=== PATIENT | female | born 1945 | race Caucasian/White ===

== ENCOUNTER 2018-03-29 09:55 | Outpatient (CLI) | payer MEDICARE, OTHER, MEDICAID, SELFPAY ==
--- NOTE | 2018-03-29 09:47 | DI.RAD_ITS ---
SYMPTOM/DIAGNOSIS: INJURY, PAIN LEFT KNEE: Three views were obtained. There is narrowing of the medial tibiofemoral cartilaginous joint space. Mild hypertrophic spurring of the bones of the knee noted, most prominent at the medial tibiofemoral joint. No other significant abnormality is seen. 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
== END 2018-03-29 10:15 ==
PROVIDERS: Visit Provider Student in an Organized Health Care Education/Training Program
DX: M25.562 Pain in left knee (principal); M17.12 Unilateral primary osteoarthritis, left knee; J44.9 Chronic obstructive pulmonary disease, unspecified; M76.32 Iliotibial band syndrome, left leg
CPT/HCPCS: 20610; 73562; 99203; J1040

== ENCOUNTER 2018-06-23 00:40 | Outpatient (CLI) | payer MEDICARE, OTHER, SELFPAY ==
[2018-06-23] MEDS: Gadoterate meglumine 20 ML VIAL 10 ML IVP (14:16)
--- NOTE | 2018-06-23 15:06 | DI.MRI_ITS ---
SYMPTOMS/DIAGNOSIS: LOW BACK PAIN, M54.5, BILATERAL LEG PAIN, H/O LUMBAR DISCECTOMY IN 2014 MRI OF THE LUMBAR SPINE: Pre and post contrast examination was performed. There are no priors for comparison. There is artifact from the patient's prior surgery. The patient has what appear to be intervertebral disc spacers at L3-4 and L4-L5 and posterior spinal rods with pedicle screws from L3 through L5. There may be mild grade 1 spondylolisthesis of L5 on S1. The conus medullaris has a normal appearance and location. There is a hemangioma or fatty rest in the L1 vertebral body. Marrow signal otherwise appears within normal limits apart from the degenerative endplate signal changes. There is patient motion artifact present. At L5-S1, there is degenerative disc disease and a diffuse disc bulge. There does not appear to be significant central spinal canal stenosis. The neural foraminal evaluation is limited due to the orthopedic hardware. At L4-L5, there does not appear to be significant central spinal canal stenosis. No significant right foraminal stenosis is seen. The left neural foramen is obscured by the orthopedic hardware. At L3-L4, there does not appear to be significant central spinal canal stenosis nor right foraminal stenosis. The left neural foramen appears obscured by the orthopedic hardware. At L2-L3, there is disc desiccation. No significant central spinal canal or neural foraminal stenosis is appreciated. L1-L2 shows no focal disc herniation, central spinal canal or neural foraminal stenosis. Following contrast administration, no significant abnormal enhancement is seen. IMPRESSION: 1. Limited examination due to patient motion artifact and orthopedic hardware. 2. Multilevel degenerative changes in the lumbar spine, but no definite significant central spinal canal or neural foraminal stenosis is seen within the limitations of the examination.
== END 2018-06-23 01:00 ==
PROVIDERS: PCP Registered Nurse; Visit Provider Registered Nurse
DX: M54.5 Low back pain (principal); M79.604 Pain in right leg; M79.605 Pain in left leg; M51.37 Other intervertebral disc degeneration, lumbosacral region; Z98.890 Other specified postprocedural states
CPT/HCPCS: 72158

== ENCOUNTER 2018-07-10 01:48 | Outpatient (CLI) | payer MEDICARE, OTHER, SELFPAY ==
--- NOTE | 2018-07-10 14:08 | DI.CT_ITS ---
SYMPTOM/DIAGNOSIS: LUMBAGO, S/P LUMBAR FUSION, Z98.1, M54.9, V45.[address]: There has been posterior fusion with metallic rods in disc spacers in place from L 3 through L 5. This creates significant artifact. The hardware appears intact. No fractures are seen. There is mild disc bulging at L 2-3 and L 5-S 1. IMPRESSION: Posterior fusion hardware from L 3 through L 5. Degenerative disc changes and facet degenerative changes at L 2-3 and L 5-S 1.
--- NOTE | 2018-07-10 14:30 | DI.RAD_ITS ---
SYMPTOM/DIAGNOSIS: LUMBAGO, M54.9, V45.4,Z98.1 LUMBAR SPINE: Lateral views in neutral, flexion and extension were performed. Comparison is made with MRI of the lumbar spine dated 06/23/18. The patient is status post posterior fusion from L 3 through L 5 with hardware in space. Disc spacers are seen at the L 3-4 and L 4-5 discs. There is no subluxation with flexion or extension. There is mild narrowing of the L 5-S 1 disc space. Anteriorly projecting osteophytes are noted in the lower thoracic spine. The aorta is calcified and normal in diameter. IMPRESSION: Stable posterior fusion from L 3 through L 5.
== END 2018-07-10 02:08 ==
PROVIDERS: PCP Registered Nurse; Visit Provider Neurological Surgery
DX: M47.817 Spondylosis without myelopathy or radiculopathy, lumbosacral region (principal); M51.37 Other intervertebral disc degeneration, lumbosacral region; M54.5 Low back pain; Z98.1 Arthrodesis status
CPT/HCPCS: 72110; 72131

== ENCOUNTER 2018-07-24 01:00 | Outpatient (CLI) | payer MEDICARE, OTHER, SELFPAY ==
--- NOTE | 2018-07-24 10:55 | DI.RAD_ITS ---
SYMPTOM/DIAGNOSIS: REPEAT VIEWS FOR MAXIMAL FLEXION/EXTENSION LUMBAR SPINE: AP and standing lateral and flexion and extension views were obtained. There are five lumbar type vertebral bodies. Posterior spinal rods and pedicle screws at L 3, L 4 and L 5. Intervertebral disc spacers are seen at L 3 -4 and L 4-5. There is normal alignment of the lumbar spine. No acute fractures or subluxations are seen. No significant subluxations are seen with flexion or extension. The bones do appear to be mildly osteopenic.
== END 2018-07-24 01:20 ==
PROVIDERS: PCP Registered Nurse; Visit Provider Physician Assistant Surgical
DX: M47.817 Spondylosis without myelopathy or radiculopathy, lumbosacral region (principal); M85.88 Other specified disorders of bone density and structure, other site; Z98.1 Arthrodesis status
CPT/HCPCS: 72100

== ENCOUNTER → 2019-09-11 12:30 | Outpatient (BNVA) | payer MEDICARE, OTHER, SELFPAY | PROVIDERS: PCP Registered Nurse; Referring Provider Physician Assistant Medical; Visit Provider Psychiatry & Neurology Neurology | DX: R26.0 Ataxic gait (principal); G95.9 Disease of spinal cord, unspecified; G25.0 Essential tremor; J44.9 Chronic obstructive pulmonary disease, unspecified; I10 Essential (primary) hypertension | CPT/HCPCS: 99204; 99215 ==

== ENCOUNTER → 2019-10-08 09:14 | Outpatient (BNVA) | payer MEDICARE, OTHER, SELFPAY | PROVIDERS: PCP Physician Assistant Medical; Referring Provider Registered Nurse; Visit Provider Psychiatry & Neurology Neurology | DX: R26.0 Ataxic gait (principal); G95.9 Disease of spinal cord, unspecified; G25.0 Essential tremor; J44.9 Chronic obstructive pulmonary disease, unspecified; I10 Essential (primary) hypertension | CPT/HCPCS: 99213 ==

== ENCOUNTER → 2019-12-18 14:52 | Outpatient (BNVA) | payer MEDICARE, OTHER, SELFPAY | PROVIDERS: PCP Physician Assistant Medical; Referring Provider Physician Assistant Medical; Visit Provider Psychiatry & Neurology Neurology | DX: R26.0 Ataxic gait (principal); G95.9 Disease of spinal cord, unspecified; G25.0 Essential tremor; I10 Essential (primary) hypertension; J44.9 Chronic obstructive pulmonary disease, unspecified | CPT/HCPCS: 99214 ==

== ENCOUNTER → 2024-09-26 12:56 | Outpatient (BNVA) | payer MEDICARE, SELFPAY | PROVIDERS: PCP Physician Assistant Medical; Referring Provider Physician Assistant Medical; Visit Provider Physician Assistant Surgical | DX: J45.909 Unspecified asthma, uncomplicated (principal); R06.00 Dyspnea, unspecified; R05.9 Cough, unspecified; T78.40XA Allergy, unspecified, initial encounter | CPT/HCPCS: 99215; 36415 ==

== ENCOUNTER 2024-09-26 15:18 | Outpatient (REF) | payer MEDICARE, SELFPAY ==
[2024-09-26 22:26] LABS: IgE 37 IU/mL (<158)
[2024-10-02 16:54] LABS: Alter tenuis/alternata IgG 39.3 mcg/mL (<12.0); Aspergillus fumigatus IgG 23.7 mcg/mL (<46.0); Aureobasidium pullulans IgG 24.8 mcg/mL (<18.0); Laceyella sacchari IgG 9.7 mcg/mL (<25.0); Micropolyspora faeni IgG 11.4 mcg/mL (<5.0); Penicillium Chrysogenum IgG 16.6 mcg/mL (<22.0); Phoma betae IgG 35.3 mcg/mL (<8.0)
== END 2024-09-26 15:19 | disposition home or self-care (01) ==
LOC: LBN 15:18
PROVIDERS: PCP Physician Assistant Medical; Visit Provider Physician Assistant Surgical
DX: J45.909 Unspecified asthma, uncomplicated (principal)
CPT/HCPCS: 86001; 82785

== ENCOUNTER → 2024-10-30 12:33 | Outpatient (BNVA) | payer MEDICARE, SELFPAY | PROVIDERS: PCP Physician Assistant Medical; Referring Provider Physician Assistant Medical; Visit Provider Physician Assistant Surgical | DX: J45.909 Unspecified asthma, uncomplicated (principal); R06.00 Dyspnea, unspecified; R05.9 Cough, unspecified; T75.89XA Other specified effects of external causes, initial encounter | CPT/HCPCS: 99214 ==

== ENCOUNTER → 2025-05-07 14:18 | Outpatient (BNVA) | payer MEDICARE, SELFPAY | PROVIDERS: PCP Physician Assistant Medical; Referring Provider Physician Assistant Medical; Visit Provider Physician Assistant Surgical | DX: J45.909 Unspecified asthma, uncomplicated (principal); R06.00 Dyspnea, unspecified; R05.9 Cough, unspecified; T78.40XA Allergy, unspecified, initial encounter | CPT/HCPCS: 99214; 90471; 90653 ==